=== PATIENT | male | born 1990 | race Caucasian/White ===

== ENCOUNTER 2023-07-16 13:08 | Outpatient (AMB) | payer OTHER, SELFPAY ==
--- NOTE | 2023-07-16 13:13 | MHC.PC.OV ---
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 HTN intermittent with chest pain. Was supposed to get a holter monitor but it was never scheduled. Last episode was three weeks ago. Blood pressure 3 weeks ago was 190/120. Taking magnesium, but unsure of strength. 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 Required: No Accompanied by: Spouse Allergies ENVIRONMENTAL Allergy (Unknown, Uncoded 07/16/23 13:22) RUNNY NOSE, WATERY EYES Medication List - Last Reconciled 07/16/23 by Patsy Peres MD No Known Home Meds Tobacco use date assessed: 07/16/23 Dental Screening Dental Screen Date: 07/16/23 Did you have a dental visit in the last 12 months?: No Did you have a dental problem in the last 6 months where you did not have access to dental care?: No Was dental information given to patient?: Patient has dentist HPI HPI Comments History of Present Illness Details The patient is a 32 year old male with a past medical history of hypertension, chest pain, presenting to [facility] ER visit in 2021 for chest pain-bp borderline. started on lisinopril. trop and ekg reassuring. CXR normal. took lisinopril for about 2 months. caused polyuria so stopped. Patient continues to have intermittent chest pain that comes on acutely and can last for minutes to 1-2 days. Non exertional. Hasnt noticed certain positions, activities triggers. Does notice heavy, creamy or acidic meals can trigger. Denies dysphagia. Has intermittent reflux and heartburn but not frequently recently. infrequent cough. Has intermittent elevated BP. This is usually during these episodes. Otherwise readings are normal [facility] Medical History (Updated 07/16/23 @ 14:16 by Patsy Peres MD) Acid reflux Palpitation HTN (hypertension) Intermittent chest pain Family History (Updated 07/16/23 @ 13:38 by Cherri Liz CMA) Father HTN (hypertension) Hypercholesteremia Maternal Grandmother HTN (hypertension) Hypercholesteremia Mother Diabetes Social History (Updated 07/16/23 @ 13:25 by MAGI Friedman Housing: Other (duplex) Patient Tobacco Use Status: Former Tobacco user Cigarette Packs Per Day: 1 Years Smoked: 10 e-Cigarette/Vaping Use: Never Used Second Hand Smoke Exposure: Yes (past) Substance Use Type: Marijuana service: No Current occupational status: employed Current occupation: [employer] Current occupational exposures/hazards: No Cognitive needs: No Hearing needs: No Vision needs: No Questionnaire PHQ-9 Over the last 2 weeks, how often have you been bothered by any of the following problems? 1. Little interest or pleasure in doing things: not at all 2. Feeling down, depressed, or hopeless: not at all 3. Trouble falling or staying asleep, or sleeping too much: several days 4. Feeling tired or having little energy: several days 5. Poor appetite or overeating: not at all 6. Feeling bad about yourself - or that you are a failure or have let yourself or your family down: not at all 7. Trouble concentrating on things, such as reading the newspaper or watching television: not at all 8. Moving or speaking so slowly that other people could have noticed. Or the opposite - being so fidgety or restless that you have been moving around a lot more than usual: not at all 9. Thoughts that you would be better off or of hurting yourself in some way: not at all Total score: 2 Depression Screening Interpretation: Negative (neg) Depression Screening Done: Yes 91960 - PHQ-9 Billing: Yes Source: Developed by Drs. Deng Mitchell, Alisia Goldman, Musa Noel and colleagues, with an educational olga lidia from [employer]. Thrive Questionnaire Date Thrive assessed: 07/16/23 I am a: Patient What is your living situation today?: I have a steady place to live Within the past 12 months, did the food you bought not last and you didn't have the money to get more?: Never true Within the past 12 months, did you worry whether your food would run out before you got money to buy more?: Never true Do you have trouble paying for medicines?: No Do you have trouble getting transportation to medical appointments?: No Do you have trouble paying your heating and electricity bill?: No Do you have trouble taking care of your child, family member or friend?: No Do you have trouble with day-to-day activities such as bathing, preparing meals, shopping, managing finances, etc.?: No Are you currently unemployed and looking for a job?: No Are you interested in more education?: No Please select the resources that you would like help with: None Currently or been in a relationship where the following occur: no concerns reported THRIVE Score: 0 AUDIT C Alcohol Use Questionnaire (AUDIT-C) 1. How often do you have a drink containing alcohol?: Monthly or less 2. How many drinks containing alcohol do you have on a typical day when you are drinking?: 5 or 6 3. How often do you have six or more drinks on one occasion?: Less than monthly Total Score: 4 GERA-7 AMB Questionnaire GERA-7 Date GERA - 7 assessed: 07/16/23 Feeling nervous, anxious, or on edge: 0 = Not at all Not being able to stop or control worryin = Not at all Worrying too much about different things: 0 = Not at all Trouble relaxin = Not at all Being so restless that it is hard to sit still: 0 = Not at all Becoming easily annoyed or irritable: 0 = Not at all Feeling afraid as if something awful might happen: 0 = Not at all Total GERA-7 score (0-4 normal; 5-9 mild; 10-14 moderate; 15-21 severe): 0 Source: Developed by Drs. Deng Mitchell, Alisia Goldman, Musa Noel and colleagues, with an educational olga lidia from [employer]. GERA-7 Assessment Billing GERA-7 Assessment Tool: GERA-7 Assessment 38592 Review of Systems Const Details: see HPI Physical exam (Primary Care) Vital Signs: Last Vital Signs Temp 98.3 F 07/16/23 13:26 Pulse 105 H 07/16/23 13:26 Resp 16 07/16/23 13:26 BP 118/74 07/16/23 13:26 Pulse Ox 96 07/16/23 13:26 Oxygen Delivery Method Room Air 07/16/23 13:26 PHYSICAL EXAM: GENERAL: Alert and oriented x 3. NAD EYES: EOMI. Anicteric. HENT: Moist mucous membranes. No scleral icterus. No cervical lymphadenopathy. LUNGS: Clear to auscultation bilaterally. CARDIOVASCULAR: Regular rate and rhythm. ABDOMEN: Soft, non-tender +bs EXTREMITIES: No edema. Non-tender. SKIN: No rashes or lesions. Warm. NEUROLOGIC: No focal neurological deficits PSYCHIATRIC: Cooperative. Appropriate mood and affect BMI result Body Mass Index 27.9 Depression Screening Interpretation: Negative (neg) Currently or been in a relationship where the following occur: no concerns reported Assessment and Plan Assessment & Plan (1) Intermittent chest pain: Comment: CXR, CT r/o lung pathology, hernia. GI referral for consideration of endoscopy. Discussed meals. If increased reflux, heartburn start PPI x one month Code(s): R07.9 - Chest pain, unspecified (2) HTN (hypertension): Code(s): I10 - Essential (primary) hypertension Qualifiers: Hypertension type: unspecified Qualified Code(s): I10 - Essential (primary) hypertension (3) Acid reflux: Code(s): K21.9 - Gastro-esophageal reflux disease without esophagitis Qualifiers: Esophagitis presence: esophagitis presence not specified Qualified Code(s): K21.9 - Gastro-esophageal reflux disease without esophagitis (4) Cough: Code(s): R05.9 - Cough, unspecified Qualifiers: Cough type: unspecified Qualified Code(s): R05.9 - Cough, unspecified (5) Intermittent chest pain: Comment: CXR, CT r/o lung pathology, hernia. GI referral for consideration of endoscopy. Discussed meals. If increased reflux, heartburn start PPI x one month Code(s): R07.9 - Chest pain, unspecified (6) HTN (hypertension): Code(s): I10 - Essential (primary) hypertension (7) Acid reflux: Code(s): K21.9 - Gastro-esophageal reflux disease without esophagitis Orders: Orders XR chest 2V Today I10 - Essential (primary) hypertension, K21.9 - Gastro-esophageal reflux disease without esophagitis, R07.9 - Chest pain, unspecified CT chest wo IV con Today I10 - Essential (primary) hypertension, K21.9 - Gastro-esophageal reflux disease without esophagitis, R05.9 - Cough, unspecified, R07.9 - Chest pain, unspecified SAM Reflex Titer and Pattern Today I10 - Essential (primary) hypertension, K21.9 - Gastro-esophageal reflux disease without esophagitis, R05.9 - Cough, unspecified, R07.9 - Chest pain, unspecified Lyme IgG/IgM w/reflex to WB Today I10 - Essential (primary) hypertension, K21.9 - Gastro-esophageal reflux disease without esophagitis, R05.9 - Cough, unspecified, R07.9 - Chest pain, unspecified Complete Blood Count Auto Diff Today I10 - Essential (primary) hypertension, K21.9 - Gastro-esophageal reflux disease without esophagitis, R05.9 - Cough, unspecified, R07.9 - Chest pain, unspecified Comprehensive Met. Panel Today I10 - Essential (primary) hypertension, K21.9 - Gastro-esophageal reflux disease without esophagitis, R05.9 - Cough, unspecified, R07.9 - Chest pain, unspecified Erythrocyte Sedimentation Rate Today I10 - Essential (primary) hypertension, K21.9 - Gastro-esophageal reflux disease without esophagitis, R05.9 - Cough, unspecified, R07.9 - Chest pain, unspecified AMB Urinalysis Auto Microscop. Today I10 - Essential (primary) hypertension Referrals Gastroenterology Referral I10 - Essential (primary) hypertension, K21.9 - Gastro-esophageal reflux disease without esophagitis, R07.9 - Chest pain, unspecified Coding Level of Care Code Tele New Pt Level 4 (94186) Complex EM visit Add On G2211 Diagnoses Intermittent chest pain R07.9 Hypertension, unspecified type I10 Hypertension type: unspecified Gastroesophageal reflux disease, unspecified whether esophagitis present K21.9 Esophagitis presence: esophagitis presence not specified Cough, unspecified type R05.9 Cough type: unspecified Additional Codes GERA-7 Assessment Billing - GERA-7 Assessment Tool: GERA-7 Assessment [id number] ([id number])
[2023-07-16 13:26] VITALS: BP 118/74; PULSE 105; RESP 16; TEMP 36.8; O2SAT 96; BMI 27.9
== END 2023-07-16 15:45 | disposition home or self-care (01) ==
PROVIDERS: Visit Provider Internal Medicine
DX: R07.9 Chest pain, unspecified (principal); I10 Essential (primary) hypertension; K21.9 Gastro-esophageal reflux disease without esophagitis; R05.9 Cough, unspecified
CPT/HCPCS: 99204; G2211

== ENCOUNTER 2023-07-31 14:19 | Outpatient (REF) | payer OTHER, SELFPAY ==
--- NOTE | ~2023-07-31 | XR_ITS ---
EXAMINATION: XR CHEST CLINICAL INFORMATION: Cough and chest pain COMPARISON: None available. TECHNIQUE: 2 views of the chest were obtained. FINDINGS: No significant abnormality is noted involving the heart, lungs, mediastinum, bony thorax or soft tissues. XR/XR chest 2V IMPRESSION: Unremarkable examination.
--- NOTE | ~2023-07-31 | CT_ITS ---
EXAMINATION: CT CHEST WITH CONTRAST CLINICAL INFORMATION: Cough, intermittent chest pain, history of trauma COMPARISON: Same day chest radiograph TECHNIQUE: Multidetector volumetric CT imaging of the chest was obtained after the administration of 65 mL of Omnipaque 350 intravenous contrast without immediate adverse reactions. Axial MIP volume rendering provided. Sagittal and coronal reformatted images were obtained. This CT examination was performed using dose optimization techniques as appropriate, variously including the following: *Automated exposure control *Adjustment of mA and/or kV according to patient size (this includes techniques or standardized protocols for targeted exams where dose is matched to indication/reason for exam; i.e. extremities or head) *Use of iterative reconstruction technique DLP: 162 mGy-cm FINDINGS: DEVELOPMENT ARCHITECT: Unremarkable LUNGS: Trachea and bronchi are patent. The lungs are clear with no evidence of inflammation or nodules. MEDIASTINUM: Unremarkable thyroid. Mild amorphous soft tissue infiltration in the anterior mediastinum likely related to residual thymus. Heart is not enlarged. No pericardial effusion. No coronary calcifications. Nonaneurysmal aorta with patency of the branch vessels. Nonenlarged pulmonary arteries. PLEURA: There is no pleural effusion. No pleural mass or thickening. AXILLA: No lymphadenopathy. UPPER ABDOMEN: Diffuse hypodensity to the liver parenchyma. Splenule. OSSEOUS STRUCTURES: Unremarkable. CT/CT chest w IV con IMPRESSION: No acute intrathoracic pathology. Hepatic steatosis. Fleischner guidelines were followed.
[2023-07-31] MEDS: iohexoL 350 MG/ML 75 ML INFUS..BTL 65 ML IV (15:13)
== END 2023-07-31 14:20 | disposition home or self-care (01) ==
LOC: HO.CT 14:19
PROVIDERS: PCP Internal Medicine; Visit Provider Internal Medicine
DX: R07.9 Chest pain, unspecified (principal); I10 Essential (primary) hypertension; K21.9 Gastro-esophageal reflux disease without esophagitis; R05.9 Cough, unspecified; Z87.828 Personal history of other (healed) physical injury and trauma
CPT/HCPCS: 71046; 71260; Q9967

== ENCOUNTER 2023-07-31 14:31 | Outpatient (REF) | payer OTHER, SELFPAY ==
[2023-07-31 14:47] LABS: MANUAL DIFF FLAG NO
[2023-07-31 15:12] LABS: Basophils Percent Auto 0.6 % (0-2); Eosinophils Absolute Auto 0.2 X10*3/uL (0.0-0.4); Eosinophils Percent Auto 2.2 % (0-4); Hematocrit 44.8 % (42.0-52.0); Imm Gran Abs Auto 0.01 X10*3/uL (0.00-0.03); Imm Gran Pct Auto 0.1 % (0.0-0.4); Lymphocytes Absolute Auto 1.9 X10*3/uL (1.2-4.9); Lymphocytes Percent Auto 27.6 % (20-40); Mean Corpuscular HGB Conc 35.7 g/dl (31.0-36.0); Mean Corpuscular Hemoglobin 30.8 pg (27.0-33.0); Mean Corpuscular Volume 86.2 fL (80.0-98.0); Mean Platelet Volume 9.9 fL (9.4-12.4); Monocytes Absolute Auto 0.6 X10*3/uL (0.1-1.2); Monocytes Percent Auto 8.6 % (2-11); Neutrophils Absolute Auto 4.1 x10*3/uL (2.0-8.3); Neutrophils Percent Auto 60.9 % (45-73); Platelet Count 254 X10*3/uL (160-400); White Blood Count 6.8 X10*3/uL (4.8-10.8)
[2023-07-31 16:39] LABS: Erythrocyte Sedimentation Rate 2 MM/HR (0-15)
[2023-07-31 17:47] LABS: Alanine Aminotransferase 27 U/L (0-40); Albumin Level 4.6 g/dL (3.5-5.0); Alkaline Phosphatase 45 U/L (39-117); Anion Gap 13 (12-20); Aspartate Amino Transferase 16 U/L (5-37); Bilirubin Total 0.9 mg/dL (0.0-1.0); Blood Urea Nitrogen 7 mg/dL (9-16); Calcium 9.9 mg/dL (8.4-10.2); Carbon Dioxide 23 mmol/L (22-29); Chloride 107 mmol/L (96-108); Estimated Glomerular Filt Rate > 60; Glucose Random 95 mg/dL (60-115); Potassium 3.9 mmol/L (3.3-5.1); Sodium 139 mmol/L (135-145); Total Protein 7.7 g/dL (6.5-8.0)
[2023-08-01 18:03] LABS: Lyme Abs Screen <0.90 index
[2023-08-02 16:17] LABS: Anti Nuclear Antibody Screen NEGATIVE (NEGATIVE)
== END 2023-07-31 14:32 | disposition home or self-care (01) ==
LOC: HO.LAB 14:31
PROVIDERS: PCP Internal Medicine; Visit Provider Internal Medicine
DX: R05.9 Cough, unspecified (principal); R07.9 Chest pain, unspecified; I10 Essential (primary) hypertension; K21.9 Gastro-esophageal reflux disease without esophagitis
CPT/HCPCS: 36415; 80053; 85025; 85652; 86038; 86617; 86618

== ENCOUNTER 2023-09-18 14:53 | Outpatient (AMB) | payer OTHER, SELFPAY ==
[2023-09-18 14:58] VITALS: BP 136/89; PULSE 83; BMI 27.8
--- NOTE | 2023-09-18 14:58 | A.OFFVIS_ITS ---
Vital Signs 09/18/23 14:58 Height 5 ft 11 in Weight 199 lb 4.766 oz BMI 27.8 BP 136/89 Blood Pressure Location Lt brachial Position Sitting Pulse 83 Intake Visit Reasons: Gastroesophageal reflux disease (GERD) Intake Note: José Miguel presents as a new patient for evaluation and management of GERD. CC: Patient states I get this weird chest pain , onset about a year ago. He reports sharp pain, random, and always on the same spot, upper left chest. Pain lasts usually for about an hour per PT. Patient also states that when he gets the chest pain his BP spikes up to around 190/109. Safety Assistant Required: No Accompanied by: Self / Same As Patient Allergies No Known Drug Allergies Allergy (Unknown, Verified 09/18/23 15:08) none ENVIRONMENTAL Allergy (Unknown, Uncoded 07/16/23 13:22) RUNNY NOSE, WATERY EYES HPI HPI Gastroesophageal reflux disease (GERD): Details: 33-year-old male with no significant past medical history is here today for initial consultation. Patient was sent to us by PCP. Patient has been experiencing upper chest discomfort that feels stabbing like pain. No pressure, no shortness of breath with activity. Patient is there usually when he is resting. Patient states that when he has this chest pain he admits to be anxious his blood pressure is up when he checks it. Patient denies any nausea or vomiting. Patient reports abdominal bloating and feeling gassy. However patient is not able to remember if when he is experiencing this pain he is belching or if he is having any acid reflux or that time. Patient reports that he is moving his bowels without any issues. Denies melena, hematochezia, unintentional weight loss or ribbon like stools. [facility] Medical History Acid reflux Palpitation HTN (hypertension) Intermittent chest pain Surgical History S/P ACL repair Family History Father HTN (hypertension) Hypercholesteremia Maternal Grandmother HTN (hypertension) Hypercholesteremia Mother Diabetes Social History Housing: Other Alcohol intake: current Patient Tobacco Use Status: Former Tobacco user Cigarette Packs Per Day: 1 Years Smoked: 10 e-Cigarette/Vaping Use: Never Used Second Hand Smoke Exposure: Yes (past) Substance Use Type: Marijuana service: No Current occupational status: employed Current occupation: [employer] Current occupational exposures/hazards: No Cognitive needs: No Hearing needs: No Vision needs: No Review of Systems Const Denies weight gain and Denies weight loss ENT Reports no additional complaints, Denies dysphagia and Denies odynophagia Card Reports no additional complaints and Reports chest pain at rest Resp Reports no additional complaints GI Denies abdominal pain, Denies belching, Denies melena, Denies bloating, Denies change in bowel habits, Denies dysphagia, Denies excessive flatus, Denies dyspepsia, Denies heartburn, Denies diarrhea, Denies loose stools, Denies nausea, Denies odynophagia and Denies vomiting Reports no additional complaints Musc Reports no additional complaints Neuro Reports no additional complaints Psych Reports no additional complaints Endo Reports no additional complaints Physical Exam Vital Signs: Last Vital Signs Pulse 83 09/18/23 14:58 BP 136/89 09/18/23 14:58 BMI result Body Mass Index 27.8 Const General: healthy appearing, no acute distress and well developed Nutritional Appearance: well nourished Orientation/consciousness: patient oriented x3 Resp Effort & Inspection: normal respiratory effort, able to speak in complete sentences, no tracheal deviation and symmetric chest movement Auscultation: clear to auscultation bilaterally Cardio Rate: regular rate GI Inspection: Yes normal to inspection and No distended Palpation (GI): Soft to palpation, not firm, nontender and No hepatosplenomegaly present Auscultation: normal bowel sounds General: Yes no CVA tenderness Back/Spine/Pelvis Back: no CVA tenderness Skin General skin exam: elasticity normal, turgor normal and dry skin Neuro General: patient oriented x3 Psych Appearance: grossly normal Mental Status: mental status grossly normal Assessment & Plan Assessment & Plan (1) Acid reflux: Code(s): K21.9 - Gastro-esophageal reflux disease without esophagitis Category: Medical Qualifiers: Esophagitis presence: esophagitis presence not specified Qualified Code(s): K21.9 - Gastro-esophageal reflux disease without esophagitis (2) Intermittent chest pain: Code(s): R07.9 - Chest pain, unspecified Category: Medical Plan Patient has negative exam except for hyperactive bowel sound in right and left upper quadrants. Mild distention without any tenderness. Will send patient for upper GI study to see if he is experiencing reflux or this is a hiatal hernia. Negative exam for now. Patient will follow-up in the office in 3 months, sooner on as needed basis. Avoid dietary triggers and late night snacking. Staying upright for minimum 3 hours after meals discussed with patient. Avoid food that is very gassy. Low FODMAP diet discussed with patient. List of food recommended as well as list of food to avoid given to patient. He is agreeable to this plan and verbalizes understanding of instructions. He was given the opportunity to ask questions and all questions answered. Thank you for allowing me to participate in his care Orders: Orders [place] upper GI series 09/18/23 K21.9 - Gastro-esophageal reflux disease without esophagitis Coding Level of Care Code New Pt Level 3 (87872) Diagnoses Gastroesophageal reflux disease, unspecified whether esophagitis present K21.9 Esophagitis presence: esophagitis presence not specified Intermittent chest pain R07.9 Time Spent (min) 40 Comment 30 minutes spent with patient and additional 10 minutes spent reviewing his records
== END 2023-09-18 15:40 | disposition home or self-care (01) ==
PROVIDERS: PCP Internal Medicine; Visit Provider Nurse Practitioner Family
DX: K21.9 Gastro-esophageal reflux disease without esophagitis (principal); R07.9 Chest pain, unspecified
CPT/HCPCS: 99203

== ENCOUNTER → 2023-09-18 14:53 | Outpatient (BNVA) | payer OTHER, SELFPAY | PROVIDERS: PCP Internal Medicine; Visit Provider Nurse Practitioner Family ==

== ENCOUNTER 2023-10-31 12:54 | Outpatient (AMB) | payer OTHER, SELFPAY ==
[2023-10-31 12:59] VITALS: BP 130/82; PULSE 78; BMI 27.4
--- NOTE | 2023-10-31 12:59 | A.OFFVIS_ITS ---
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 He is 33-year-old male who has been having this intermittent episodes of chest discomfort for many months. Patient said this chest discomfort described as sharp pressure in the left parasternal area that happens randomly. Symptoms last for 15-30 minutes. Recently saw GI provider and was told that try to burp. This said improve his symptoms. His symptoms are not clearly exertional in nature. However he is perplexed about the symptoms. His symptoms have not recurred for the last 2 weeks. Comes for follow-up today. Says mom has a history of possible cardiomyopathy is not clear. He denies any significant symptoms of shortness of breath, orthopnea, PND. He does not exercise on a regular basis but stays pretty active. He has history of hypertension past was on lisinopril but he said he has stopped taking it because it increases urination levels. His blood pressure is generally in the 130 range. Denies any prolonged palpitation irregular heartbeat. No lightheadedness, syncope. No orthopnea, PND, leg edema. [facility] Medical History Acid reflux Palpitation HTN (hypertension) Intermittent chest pain Surgical History S/P ACL repair Family History Father HTN (hypertension) Hypercholesteremia Maternal Grandmother HTN (hypertension) Hypercholesteremia Mother Diabetes Social History Housing: Other Alcohol intake: current Patient Tobacco Use Status: Former Tobacco user Cigarette Packs Per Day: 1 Years Smoked: 10 e-Cigarette/Vaping Use: Never Used Second Hand Smoke Exposure: Yes (past) Substance Use Type: Marijuana service: No Current occupational status: employed Current occupation: [employer] Current occupational exposures/hazards: No Cognitive needs: No Hearing needs: No Vision needs: No Review of Systems Const Denies chills, Denies fatigue, Denies fever(s), Denies frequent falls, Denies weakness, Denies weight gain and Denies weight loss ENT Denies dizziness Card Denies chest pain, Denies leg edema, Denies lightheadedness, Denies palpitations, Denies dyspnea, Denies dyspnea on exertion and Denies orthopnea Resp Denies cough, Denies dyspnea and Denies dyspnea on exertion GI Denies bloating and Denies change in bowel habits Musc Denies muscle weakness, Denies numbness and Denies tingling Neuro Denies dizziness, Denies frequent falls, Denies numbness, Denies tingling and Denies weakness Endo Denies fatigue and Denies palpitations Physical Exam Vital Signs: Last Vital Signs Pulse 78 10/31/23 12:59 BP 130/82 10/31/23 12:59 BMI result Body Mass Index 27.4 Const General: cooperative, comfortable, no acute distress, well developed, alert, awake and Physically active Nutritional Appearance: average body habitus and well nourished Orientation/consciousness: patient oriented x3 Limitations: no limitations HEENT Head: Yes normocephalic and Yes atraumatic Neck Neck: Yes trachea midline, Yes supple and Yes no JVD Resp Effort & Inspection: normal respiratory effort Auscultation: clear to auscultation bilaterally Cardio Jugular venous distension: no JVD Palpation: normal PMI Rate: regular rate Rhythm: regular rhythm Heart sounds: S1 normal heart sound present, S2 normal heart sound present, no click, no gallops, no murmurs and no rubs GI Auscultation: normal bowel sounds Skin General skin exam: no rashes or lesions noted Neuro General: patient oriented x3 and no focal motor deficits Extrem General: Yes no clubbing, cyanosis or edema Psych Appearance: grossly normal Office Procedures EKG Details: EKG shows normal sinus rhythm with sinus arrhythmia with rightward axis. [id number], Complete Assessment & Plan Assessment & Plan (1) Intermittent chest pain: Code(s): R07.9 - Chest pain, unspecified Category: Medical Plan: Intermittent episodes of left-sided chest discomfort which are atypical features. Low likelihood of myocardial ischemia although this needs to be ruled out. Will suggest a exercise treadmill stress test to evaluate for the same. Also given his rightward axis on EKG and family history of cardiomyopathy will suggest an echocardiogram to evaluate LV structure and function and evaluate for pulmonary hypertension as well as left ventricular hypertrophy. His blood pressure is borderline at this time and have strongly recommended him to continue monitor blood pressure regularly at home and if persistently elevated should be treated. Importance of this was discussed with him. Low-salt diet was discussed. Advised to participate in regular physical activity. Will follow up in the clinic if need be. Thank you for allowing me to partake in his care Orders: Orders CA stress test Today R07.9 - Chest pain, unspecified CA echo transthoracic complete Today R07.9 - Chest pain, unspecified Coding Level of Care Code New Pt Level 4 (31685) Diagnoses Intermittent chest pain R07.9 CPT Codes EKG - CPT: 38459-[id number], Complete ([id number])
== END 2023-10-31 13:15 | disposition home or self-care (01) ==
PROVIDERS: PCP Internal Medicine; Visit Provider Internal Medicine Cardiovascular Disease
DX: R07.9 Chest pain, unspecified (principal)
CPT/HCPCS: 93010; 99204

== ENCOUNTER → 2023-10-31 12:54 | Outpatient (BNVA) | payer OTHER, SELFPAY | PROVIDERS: PCP Internal Medicine; Visit Provider Internal Medicine Cardiovascular Disease | DX: R07.89 Other chest pain (principal) | CPT/HCPCS: 93005 ==

== ENCOUNTER 2023-11-26 10:04 | Outpatient (REF) | payer OTHER, SELFPAY ==
--- NOTE | ~2023-11-26 | FL_ITS ---
EXAMINATION: XR FLUOROSCOPY UPPER GI WITH AIR CLINICAL INFORMATION: Chest discomfort/reflux COMPARISON: None TECHNIQUE: Fluoroscopic air contrast upper GI examination was performed utilizing standard techniques with thin and thick barium and effervescent granules. Numerous spot images were obtained. FINDINGS: Dual and single contrast images of the esophagus demonstrate normal caliber, contour, and mucosal pattern. No evidence of stricture, mass, or ulcerations identified. Esophageal peristalsis was normal. A small type I hiatal hernia is present. Significant gastroesophageal reflux is seen up to the thoracic inlet. Dual contrast and single contrast images of the stomach demonstrated a normal contour. Normal mucosal and fold pattern. No masses or ulcerations are seen. Contrast freely passed into the gastric antrum and duodenal bulb without delay. Single and air-contrast images of the duodenal bulb demonstrate no abnormality. The duodenal sweep has a normal appearance, course, and mucosal fold appearance. The imaged proximal jejunum has a normal fold pattern and caliber. FLUOROSCOPY TIME: 3 minutes 13 seconds Number of Spot Images: 8 Number of Cine: 14 DOSE AREA PRODUCT: 2350 uGy-m2 (microgray-meter squared) FL/FL upper GI series IMPRESSION: 1. Small type I hiatal hernia. 2. Significant gastroesophageal reflux. 3. Remainder of the exam appears normal. This procedure was performed by Michael Cisneros PA-C, and supervised by Dr. Membreno Electronically signed by: Avery Membreno MD 11/27/2023 01:31 PM EDT
== END 2023-11-26 10:05 | disposition home or self-care (01) ==
LOC: HO.XRAY 10:04
PROVIDERS: PCP Internal Medicine; Visit Provider Nurse Practitioner Family
DX: K21.9 Gastro-esophageal reflux disease without esophagitis (principal)
CPT/HCPCS: 74240

== ENCOUNTER → 2023-11-26 10:06 | Outpatient (BNV) | payer OTHER, SELFPAY | PROVIDERS: PCP Internal Medicine; Visit Provider Radiology Diagnostic Radiology | DX: K21.00 Gastro-esophageal reflux disease with esophagitis, without bleeding (principal) | CPT/HCPCS: 74246 ==

== ENCOUNTER → 2023-12-09 08:00 | Outpatient (REF) | payer OTHER, SELFPAY ==
--- NOTE | 2023-12-09 08:04 | CA_ITS ---
Acquisition Time: 2023-12-09 08:58:39 Total Exercise Time: 00:10:00 Test Indications: CHEST PAIN Medications: Protocol: ENRIKE Max HR: 166 BPM 89% of Pred: 185 BPM Max BP: 168/090 mmHG Max Work Load: 11.7 METS Exercise stress test exercise 10 min of Enrike protocol achieving 89% MPHR, without anginal symptoms, without arrhythmias, with normotensive response to exercise, without EKG changes. Test reviewed with Dr. Romero. Referred By: Leo Blake Overread By: Jesusita Membreno
--- NOTE | 2023-12-09 08:04 | CA_ITS ---
Transthoracic Echocardiogram Patient (Last, First, Middle): José Miguel Encinas, Gender: Male Date of : 1990 Age: 33 Procedure Date: 12/09/2023 Procedure Type: Transthoracic Echocardiogram Location: OP Height: 180. cm Weight: 88.91 kg BSA: 2.09 m2 Heart Rate: 75 bpm BP: 128 / 85 mmHg Med Aide: MARCE Referring MD: Leo Blake MD Symptoms: R07.9 - Chest pain, unspecified Study Quality: Adequate ECG Rhythm: Sinus Conclusions: - The left ventricular systolic function is normal. The calculated ejection fraction is 61% by biplane method. - LV peak GLS -14.8%. - No obvious valvular pathology seen on this study. Findings Left Ventricle Normal left ventricular cavity size. There is normal left ventricular wall thickness. The left ventricular systolic function is normal. The calculated ejection fraction is 61% by biplane method. There is no evidence of regional wall motion abnormalities. Diastolic function is normal for age. LV peak GLS -14.8%. Right Ventricle Normal right ventricular cavity size and systolic function. Atria Both atria are normal in size. Aortic Valve There is a normal trileaflet aortic valve. There is no aortic valve stenosis. There is no aortic valve regurgitation. Mitral Valve The mitral valve appears normal. There is trace mitral valve regurgitation. There is no mitral valve stenosis. Pulmonic Valve The pulmonic valve is likely normal. Tricuspid Valve Normal tricuspid valve structure. There is trace tricuspid valve regurgitation. There is no evidence of pulmonary hypertension. Great Vessels The asc aorta is normal in size. Venous The inferior vena cava is mildly dilated and collapses greater than 50% with inspiration. Pericardium/Pleural There is no evidence of pericardial effusion. Prior Study Comparison No prior study available for comparison. Recommendations, Care & Conclusions No obvious valvular pathology seen on this study. Measurements 2D Linear Measurements IVSd: 0.92 0.6-0.9/0.6-1.0 cm LVIDd: 4.64 3.9-5.3/4.2-5.9 cm LVIDd Index: 2.22 2.4-3.2/2.2-3.1 cm/m2 LVIDs: 2.58 2.0-3.6 cm LVPWd: 0.88 0.7-1.1 cm LA Diam: 3.20 2.7-3.8/3.0-4.0 cm LAIDs Index: 1.53 1.5-2.3 cm/m2 LV Mass: 173.23 67-162/88-224 g LV Mass Index: 82.89 43-95/49-115 g/m2 LVOT Diam: 2.00 3.0+(-)1.3 cm 2D Systolic Function EF 4C: 55.20 >55% EF 2C: 66.60 >55% EF BiP: 61.20 >55% Mitral Valve MV Pk E: 0.74 MV PK A: 0.33 MV Decel Time: 180.00 E/A: 2.30 E'Lateral: 13.20 E'Medial: 10.30 E/E' Med: 7.20 E/E' Lat: 5.60 PHT: 53.00 MVA PHT: 4.15 Decel Lamoure: 4.11 Aortic Valve AoV Pk Marshall: 1.04 AoV Mn Marshall: 0.79 AoV VTI: 0.22 AoV Pk Grad: 4.00 Aov Mn Grad: 3.00 ZAC Cont.VTI: 2.55 LVOT LVOT Pk Marshall: 0.91 LVOT Mn Marshall: 0.67 LVOT VTI: 0.18 LVOT Pk Grad: 3.00 LVOT Mn Grad: 2.00 LVOT Diam: 2.00 LVOT Area: 3.14 Diastolic Function MV Pk E: 0.74 MV Pk A: 0.33 E/A: 2.30 E'Medial: 10.30 E/E' Med: 7.20 E' Laterial: 13.20 E/E' Lat: 5.60 Right Ventricle TAPSE (mm): 22.20 TVS' Marshall: 11.70 Tricuspid Valve TR Pk Marshall: 1.73 TR Pk Grad: 12.00 RA Press: 15.00 RVSP: 27.00 Great Vessels Aorta Sinus of Valsalva: 2.90 2.0-3.5 cm Ao Asc: 3.00 2.1-3.4 cm Pulmonary Valve PV Pk Marshall: 0.91 Peak PV Grad: 3.00 Updated in Other Vendor System with Status of Final Jose G Martel MD electronically signed on 12/09/2023 12:31:17 PM with status of Final
== END ==
LOC: HO.CARD 08:00
PROVIDERS: PCP Internal Medicine; Visit Provider Internal Medicine Cardiovascular Disease
DX: R07.9 Chest pain, unspecified (principal)
CPT/HCPCS: 93017; 93306; 93356

== ENCOUNTER → 2023-12-09 08:04 | Outpatient (BNV) | payer OTHER, SELFPAY | PROVIDERS: PCP Internal Medicine; Visit Provider Internal Medicine | DX: R07.9 Chest pain, unspecified (principal) | CPT/HCPCS: 93016; 93018; 93350; 93356 ==

== ENCOUNTER 2023-12-12 14:56 | Outpatient (REF) | payer OTHER, SELFPAY | END 2023-12-12 14:57 | disposition home or self-care (01) | LOC: HO.HOSX 14:56 | PROVIDERS: PCP Internal Medicine; Visit Provider Orthopaedic Surgery | DX: M25.511 Pain in right shoulder (principal) | CPT/HCPCS: 73030 ==

== ENCOUNTER 2023-12-12 14:56 | Outpatient (AMB) | payer OTHER, SELFPAY ==
--- NOTE | 2023-12-12 14:59 | MHC.OFFVIS ---
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 The patient states that his symptoms have gotten worse over the last year in spite of continued non operative treatments. He did go to an urgent care center approximately 1 year ago. He has been taking anti-inflammatory medicines, gabapentin and a muscle relaxant as well as Tylenol which gave him minimal relief. The patient states that at times his right small finger and ring finger will go ?numb?. The patient has increased pain with neck extension. He also reports intermittent pain along the lateral and posterior aspects of his right shoulder. He reports intermittent weakness in his right arm as well. He has failed the last 6 weeks of conservative treatment. Allergies No Known Drug Allergies Allergy (Unknown, Verified 12/12/23 15:09) none ENVIRONMENTAL Allergy (Unknown, Uncoded 12/12/23 15:09) RUNNY NOSE, WATERY EYES Medication List - Last Reconciled 12/12/23 by Toño Beltran MD cyclobenzaprine 10 mg (2 x 5 mg) PO BEDTIME PRN gabapentin 300 mg PO BID omeprazole 20 mg PO DAILY PFSH Medical History Acid reflux Palpitation HTN (hypertension) Intermittent chest pain Surgical History S/P ACL repair Family History Father HTN (hypertension) Hypercholesteremia Maternal Grandmother HTN (hypertension) Hypercholesteremia Mother Diabetes Social History Housing: Other Alcohol intake: current Patient Tobacco Use Status: Former Tobacco user Cigarette Packs Per Day: 1 Years Smoked: 10 e-Cigarette/Vaping Use: Never Used Second Hand Smoke Exposure: Yes (past) Substance Use Type: Marijuana service: No Current occupational status: employed Current occupation: [employer] Current occupational exposures/hazards: No Cognitive needs: No Hearing needs: No Vision needs: No Physical Exam Const Other: Well-nourished well-developed very friendly male awake alert and oriented x3 in no acute distress Neck Other: Cervical spine examination shows right-sided paraspinal muscle tenderness, pain with range of motion, positive Spurling's test, 4/5 strength with testing of his right biceps and wrist extensors when compared to 5/5 strength on his left side Extrem Other: Right shoulder examination shows full range motion when compared to his left shoulder, 4+ out of 5 strength with supraspinatus testing, positive impingement signs, no instability Results Reviewed Results Reviewed: X-rays of the patient's right shoulder show moderate to severe acromioclavicular joint narrowing, a type 2 acromion, no acute bony abnormalities Assessment & Plan Assessment & Plan (1) Neck pain on right side: Code(s): M54.2 - Cervicalgia Category: Medical (2) Right shoulder pain: Code(s): M25.511 - Pain in right shoulder Category: Medical Plan Mr. Encinas presents with progressively worsening neck pain which radiates into his right arm as well as associated right arm weakness and paresthesias most likely due to cervical stenosis or a disc herniation. Thus, I will send the patient for an MRI of his cervical spine for further evaluation. I will contact him by phone once the MRI results are available. He will call me prior to that time should his symptoms worsen in any way. I did give him a prescription for a Medrol Dosepak to help with his symptoms in the meantime. The patient also has right shoulder discomfort due to impingement syndrome. We will hold off on a cortisone injection at this time. Feel free to call me at any time should questions regarding his orthopedic management arise. I spent 22 minutes in reviewing the patient's records and imaging studies, seeing the patient and documenting in the medical record. Orders: Orders XR shoulder RT min 2V Today M25.511 - Pain in right shoulder MR cervical spine wo con Today M54.2 - Cervicalgia Medications: New methylprednisolone (Medrol (Abner)) PO PER PKG DIR 21 ea 0RF Coding Level of Care Code New Pt Level 3 (48035) Complex EM visit Add On G2211 Diagnoses Neck pain on right side M54.2 Right shoulder pain M25.511
== END 2023-12-12 15:43 | disposition home or self-care (01) ==
PROVIDERS: PCP Internal Medicine; Visit Provider Orthopaedic Surgery
DX: M54.2 Cervicalgia (principal); M25.511 Pain in right shoulder
CPT/HCPCS: 99203

== ENCOUNTER 2024-01-23 11:32 | Outpatient (REF) | payer OTHER, SELFPAY | END 2024-01-23 11:33 | disposition home or self-care (01) | LOC: HO.HOSX 11:32 | PROVIDERS: Visit Provider Orthopaedic Surgery | DX: Z13.89 Encounter for screening for other disorder (principal) ==

== ENCOUNTER 2024-02-12 10:00 | Outpatient (RCR) | payer OTHER, SELFPAY ==
--- NOTE | 2024-01-15 10:52 | MHC.PT.EP ---
[facility] [place] [facility] [place] [facility] [place] Office [address] Lorin Chaney [address] [phone] F: [phone] F: [phone] F: [phone] F: [phone] Physical Therapy Plan of Care Date of Evaluation: 01/15/24 Date of Surgery: n/a Diagnosis: cervicalgia Assessment: Patient is a 33 year old male presenting to PT with complaints of pain in his neck. Pt reports onset of pain began about 2.5 months ago due to insidious onset. He presents today with impairments in pain, cervical ROM, radicular signs, posture. 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 Clinical presentation today is most consistent with signs and sx associated with neck pain and pt will benefit from skilled PT 2 week x 4 weeks to address the following problems and impairments noted upon evaluation: pain, cervical ROM, radicular signs, posture. These problems limit the patient with the following functional activities: ADLs, sleep, work. The prescribed treatment plan of care is medically necessary. Co-morbidities of none were identified and taken into considerations of plan of care. Pt was educated on HEP, role of PT, prognosis, POC. Frequency and Duration: The patient will be seen 2 x week x 4 weeks Short Term Goals: Pt will demonstrate centralization of sx in 2 weeks for improved QOL. Pt will demonstrate cervical ROM in available range with min to no pain/ sx in 2 weeks. Manager Utilities Goals: Pt will demonstrate improved NDI score by 10% in 4 weeks for improved functional mobility. Pt will demonstrate ability to sleep through the night with min to no pain in 4 weeks for return to PLOF. Pt will demonstrate ability to complete ADLs with min to no pain/sx onset in 4 weeks for return to PLOF. Treatment Plan: Modalities to reduce pain, spasms and effusion. Manual therapy to restore motion and function. Therapeutic exercise to improve strength and flexibility. Neuromuscular re-education for posture and balance. Therapeutic activities to return to functional activities of daily living. Electronically signed by: Pricilla Ross, PT, DPT, ATC Please sign and return to therapist. Thank you for your referral.
--- NOTE | 2024-07-22 07:37 | MHC.PT.DC ---
[facility] [place] [facility] [place] [facility] [place] [facility] [address] Lorin Chaney [address] [phone] F: [phone] F: [phone] F: [phone] F: [phone] Physical Therapy Discharge Report Diagnosis: cervicalgia Date of Surgery: n/a Date of Evaluation: 01/15/24 Date of Discharge: 07/22/24 Treatments to Date: 3 Cancellations to Date: No Shows to Date: Discharge Status: Discharge Summary: Pt did not schedule more appointments at his last visit. Pt d/c as this was >30 days ago. Electronically signed by: Pricilla Ross, PT, DPT, ATC Please sign and return to therapist. Thank you for your referral.
== END 2024-07-22 07:38 | disposition home or self-care (01) ==
LOC: HO.PTCHIC 10:00
PROVIDERS: PCP Internal Medicine; Visit Provider Orthopaedic Surgery
DX: M54.2 Cervicalgia (principal)
CPT/HCPCS: 97110; 97161

== ENCOUNTER 2024-02-13 09:25 | Outpatient (REF) | payer OTHER, SELFPAY ==
--- NOTE | ~2024-02-13 | XR_ITS ---
EXAMINATION: XR CERVICAL SPINE CLINICAL INFORMATION: Cervicalgia M54.2. COMPARISON: None available TECHNIQUE: 3 views of the cervical spine were obtained. FINDINGS: Normal bone mineralization. No fractures, compression deformity, or focal bone lesions. There is a trace levoconvex scoliosis. There is a mild reversal of the normal lordosis centered at C3-4. This is nonspecific. There is normal facet alignment in an otherwise normal sagittal alignment without subluxations. There is minimal degenerative disc change C5-6. Remainder of the intervertebral discs appear normal. There is mild facet degeneration present on the right C5-6. Facets are otherwise normal in appearance. Atlantoaxial joint and craniocervical junction are intact and aligned. No prevertebral or paravertebral soft tissue abnormalities. Lung apices clear. XR/XR cervical spine 3V IMPRESSION: 1. No acute cervical spine abnormalities. 2. Minimal levoconvex scoliosis, and minimal reversal of the normal lordosis, both nonspecific. 3. Mild disc and right facet degeneration C5-6. Electronically signed by: Avery Membreno MD 02/28/2024 11:07 AM [facility]
== END 2024-02-13 09:26 | disposition home or self-care (01) ==
LOC: HO.HOSX 09:25
PROVIDERS: Visit Provider Orthopaedic Surgery
DX: M54.2 Cervicalgia (principal)
CPT/HCPCS: 72040

== ENCOUNTER 2024-02-13 13:13 | Outpatient (AMB) | payer OTHER, SELFPAY ==
--- NOTE | 2024-02-13 13:15 | A.OFFVIS_ITS ---
Vital Signs 02/13/24 13:26 Height 5 ft 11 in Weight 201 lb BMI 28.0 Handedness Right Intake Visit Reasons: Neck pain radiating down right arm, Right shoulder pain Intake Note: José Miguel is a 33 year old male who presents with complaints of progressively worsening neck pain which radiates into his right arm. The patient states that his symptoms have gotten worse over the last year in spite of continued non operative treatments. He did go to an urgent care center approximately 1 year ago. He has been taking anti-inflammatory medicines, gabapentin and a muscle relaxant as well as Tylenol which gave him minimal relief. The patient states that at times his right small finger and ring finger will go ?numb?. The patient has increased pain with neck extension. He also reports intermittent pain along the lateral and posterior aspects of his right shoulder. He reports intermittent weakness in his right arm as well. I first evaluated patient for the symptoms on 12/12/2023, more than 8 weeks ago. The patient has failed the last 8 weeks of conservative treatment including physical therapy exercises, Tylenol, anti-inflammatory medicines and gabapentin. The patient was given a prescription for a Medrol Dosepak which gave him minimal relief. I did order an MRI of his cervical spine after his last visit. That MRI was denied by his insurance company because the insurance company felt that the patient had not failed the prior 6 weeks of conservative treatments. Allergies No Known Drug Allergies Allergy (Unknown, Verified 02/13/24 13:26) none ENVIRONMENTAL Allergy (Unknown, Uncoded 02/13/24 13:26) RUNNY NOSE, WATERY EYES Medication List - Last Reconciled 02/13/24 by Toño Beltran MD cyclobenzaprine 10 mg (2 x 5 mg) PO BEDTIME PRN gabapentin 300 mg PO BID methylprednisolone (Medrol (Abner)) PO PER PKG DIR omeprazole 20 mg PO DAILY PFSH Medical History Acid reflux Palpitation HTN (hypertension) Intermittent chest pain Surgical History S/P ACL repair Family History Father HTN (hypertension) Hypercholesteremia Maternal Grandmother HTN (hypertension) Hypercholesteremia Mother Diabetes Social History Alcohol intake: current Patient Tobacco Use Status: Former Tobacco user Cigarette Packs Per Day: 1 Years Smoked: 10 e-Cigarette/Vaping Use: Never Used Second Hand Smoke Exposure: Yes (past) Substance Use Type: Marijuana service: No Current occupational status: employed Current occupation: [employer] Current occupational exposures/hazards: No Cognitive needs: No Hearing needs: No Vision needs: No Physical Exam Vital Signs: BMI result Body Mass Index 28.0 Const Other: Well-nourished well-developed very friendly male awake alert and oriented x3 in no acute distress Neck Other: Cervical spine examination shows pain with range of motion, tenderness along his right-sided paraspinal muscles, no overlying skin lesions, positive Spurling's test, 4/5 strength with testing of his right biceps and wrist extensors when compared to 5/5 strength on his left side Extrem Other: Right shoulder examination shows full range of motion when compared to his left shoulder, positive impingement signs, no instability Results Reviewed Results Reviewed: X-rays of the patient's right shoulder taken today show moderate acromioclavicular joint narrowing, a type 2 acromion, no acute bony abnormalities X-rays of the patient's cervical spine taken today show loss of normal cervical lordosis, mild to moderate diffuse degenerative disc disease, no acute bony abnormalities Assessment & Plan Assessment & Plan (1) Neck pain on right side: Code(s): M54.2 - Cervicalgia Category: Medical (2) Right shoulder pain: Code(s): M25.511 - Pain in right shoulder Category: Medical Plan Mr. Encinas presents with progressively worsening neck pain which radiates into his right arm as well as associated right arm weakness most likely due to cervical stenosis or a disc herniation. I will once again order a cervical spine MRI. The previous order was denied by the patient's insurance company. The patient's symptoms have gotten worse since I last saw him, 8 weeks ago. He has failed the last 8 weeks of conservative treatment. I do feel that the MRI is a medical necessity because of his right upper extremity weakness and progressively worsening symptoms. I will contact the patient by phone once the MRI results are available. He will call me prior to that time should his symptoms worsen in any way. Feel free to call me at any time should questions regarding his orthopedic management arise. I spent 22 minutes in reviewing the patient's records and imaging studies, seeing the patient and documenting in the medical record. Orders: Orders MR cervical spine wo con Today M54.2 - Cervicalgia Coding Level of Care Code Est Pt Level 3 (64422) Complex EM visit Add On G2211 Diagnoses Neck pain on right side M54.2 Right shoulder pain M25.511
[2024-02-13 13:26] VITALS: BMI 28.0
== END 2024-02-13 13:43 | disposition home or self-care (01) ==
PROVIDERS: PCP Internal Medicine; Visit Provider Orthopaedic Surgery
DX: M54.2 Cervicalgia (principal); M25.511 Pain in right shoulder
CPT/HCPCS: 99213

== ENCOUNTER → 2024-02-13 13:17 | Outpatient (BNV) | payer OTHER, SELFPAY | PROVIDERS: Visit Provider Radiology Diagnostic Radiology | DX: M54.2 Cervicalgia (principal) | CPT/HCPCS: 72040 ==

== ENCOUNTER 2024-03-12 19:08 | Outpatient (REF) | payer OTHER, SELFPAY ==
--- NOTE | ~2024-03-12 | MR_ITS ---
EXAMINATION: MR CERVICAL SPINE WITHOUT CONTRAST CLINICAL INFORMATION: Cervicalgia COMPARISON: Cervical spine 02/13/2024 TECHNIQUE: MRI of the cervical spine was obtained using routine sequences without contrast. FINDINGS: There is mild straightening of cervical lordosis. The vertebral heights and alignment is normal. There is mild loss of C5-6 disc height with mild disc desiccation change. The rest the disc heights are maintained normal. The CT-3's unremarkable. At C3-4 disc levels is minimal bulge slightly more centrally with effacement of ventral thecal sac and mildly to canal stenosis. The neural foramina are patent bilaterally. At C4-5 disc levels is mild diffuse bulge slightly eccentric to the right with effacement of ventral thecal sac and [id number] canal stenosis. Mild narrowing of right neural foramina from uncovertebral hypertrophic changes seen. At C5-6 disc level there is a right paracentral disc herniation impinging on the right ventral cord and resulting in moderate canal stenosis. There is moderate right neural foraminal narrowing from uncovertebral hypertrophic change mild narrowing of left neural foramina is noted. At C6-7 disc level there is broad-based moderate bulge resulting in moderate canal stenosis. There is moderate right and mild left neural foramina narrowing from uncovertebral hypertrophic change. At C7-T1 disc level there is no significant disc bulge, herniation or spinal canal stenosis. The neural foramina patent bilaterally. The cord signal and the cervical-medullary junction is normal. The bone marrow signal is normal. The paravertebral soft tissues are normal. MR/MR cervical spine wo con IMPRESSION: Moderate size right paracentral disc herniation at C5-6 disc level resulting in moderate spinal canal stenosis and moderate right neural from narrowing. Mild bulge centralized at C3-4, slightly eccentric to the right at C4-5 and moderate bulge at C6-7 disc level with spinal canal stenosis as described above. There is no abnormal signal seen in the cord Electronically signed by: Porfirio Warren MD 03/16/2024 07:45 AM [facility]
== END 2024-03-12 19:09 | disposition home or self-care (01) ==
LOC: HO.MRI 19:08
PROVIDERS: Visit Provider Orthopaedic Surgery
DX: M54.2 Cervicalgia (principal)
CPT/HCPCS: 72141

== ENCOUNTER → 2024-03-12 19:17 | Outpatient (BNV) | payer OTHER, SELFPAY | PROVIDERS: Visit Provider Radiology Diagnostic Radiology | DX: M54.2 Cervicalgia (principal) | CPT/HCPCS: 72141 ==

== ENCOUNTER 2024-03-26 13:14 | Outpatient (AMB) | payer OTHER, SELFPAY ==
--- NOTE | 2024-03-26 13:17 | A.SPINEOV_ITS ---
Vital Signs 03/26/24 13:23 Height 5 ft 11 in Weight 203 lb BMI 28.3 Intake Visit Reasons: cervical stenosis Intake Note: Mr. Encinas is here today c/o of right shoulder pain causing numbness and tingling of fingers. Supervisor Pleating Required: No Allergies No Known Drug Allergies Allergy (Unknown, Verified 03/26/24 13:24) none ENVIRONMENTAL Allergy (Unknown, Uncoded 02/13/24 13:26) RUNNY NOSE, WATERY EYES Physical Exam Vital Signs: BMI result Body Mass Index 28.3 Assessment & Plan Assessment & Plan (1) Cervical myelopathy: Code(s): G95.9 - Disease of spinal cord, unspecified Category: Medical Plan Dear DR Beltran, Thank you for referring Mr Encinas to our office today. He is a very nice 33-year-old gentleman presents to the office today for pain going down his right arm with feelings of weakness of his hand and numbness of his whole arm. It started sometime in December. There was no inciting event. The pain was very severe when it 1st started and it has receded a little bit with the help of some physical therapy and tincture of time. However, he is still dealing with about a 4 to 5/10 pain scale daily, at times up to 7/10 radiating down into his arm ending at about his mid forearm level. As mentioned above he is also feeling numbness of his whole right arm with feelings of weakness in his hand. He has been taking Motrin and Tylenol when needed. He underwent a cervical MRI here at [facility] showing a large herniated disc on the right at C5-6 with compression of the spinal cord. He was referred for evaluation. PMH: He is otherwise healthy, history of right ACL repair many years ago. Other than that no issues with his heart, lungs, gastrointestinal, liver, kidneys, bleeding disorders, blood clots cancer etc.. Social hx: Quit smoking 7 years ago, drinks alcohol occasionally, will use a vaping pen with marijuana from time to time. Medications: Just Tylenol Motrin as needed Allergies: None Physical exam: Strength examination reveals some subtle weakness of the finger intrinsics on the right hand, palmar grasp is slightly weaker than the left as well. Right triceps is very subtly weak maybe 4- out of 5. Reflexes demonstrate hyperreflexia on the right side with Aguirre's sign in the right hand and clonus in both ankles. Gait is normal with normal tandem gait testing. Imaging review: Cervical MRI done at [facility] reveals slight reversal of the normal lordotic curvature of the cervical spine with some superimposed degenerative changes, congenitally narrow spinal canal but at C5-6 there is a large right-sided herniated disc causing compression of the spinal cord and severe compression of the right C6 nerve root. There may be some sub tle cord signal change as well. Impression: 33-year-old male presents with acute onset of pain going down his right arm in December of 2023, also associated with hand weakness and whole arm numbness. The pain has receded a little bit, but the weakness and numbness has remained. At times the pain is still as high as a 7/10 requiring anti- inflammatories and Tylenol. He does have weakness of his right arm as outlined above with hyperreflexia, Aguirre's sign and clonus. The MRI shows a severely compressed right C6 nerve with a large fragmented disc herniation as well as spinal cord compression. I am going to speak with Dr. Akhtar, but I believe the patient would be a good candidate for artificial disc replacement given his young age. Once I confirmed with Dr. Akhtar, I will call the patient back and update him with the plan. We did briefly discuss the nature of cervical disc herniations, spinal cord compression and the fact that the ultimate goal of surgery would be to prevent him from getting worse but there would be no guarantee that the strength in the hand and the numbness in the arm would completely go away. Pt was given risk and benefits of surgery including but not limited to infection, hematoma , nerve injury,durotomy, weakness,bowel/bladder injury, persistent pain, vocal hoarseness and dysphagia as well as the option to continue with conservative treatment and patient wishes to proceed with surgery. Pt is aware they should stop their motrin, aspirin 7 days prior to surgery. All questions were answered to the best of our ability. If there is anything about this patients medical history that we have overlooked or concerns you have about us proceeding with surgery we would appreciate any input you can offer. Thank you for allowing us to care for your patient. The total time spent with this visit with this patient was 45 minutes reviewing history, physical exam, cervical imaging review, and implementation of treatment plan or further diagnostic testing José Miguel Akhtar MD,PhD [facility] Coding Level of Care Code New Pt Level 4 (36889) Diagnoses Cervical myelopathy G95.9
[2024-03-26 13:23] VITALS: BMI 28.3
== END 2024-03-26 14:03 | disposition home or self-care (01) ==
PROVIDERS: PCP Internal Medicine; Referring Provider Orthopaedic Surgery; Visit Provider Physician Assistant
DX: G95.9 Disease of spinal cord, unspecified (principal)
CPT/HCPCS: 99204

== ENCOUNTER → 2024-03-26 13:14 | Outpatient (BNVA) | payer OTHER, SELFPAY | PROVIDERS: PCP Internal Medicine; Referring Provider Orthopaedic Surgery; Visit Provider Physician Assistant ==

== ENCOUNTER 2024-05-14 09:59 | Day surgery (SDC) | payer OTHER, SELFPAY ==
[2024-05-04 10:33] VITALS: BMI 28.0
[2024-05-14] VITALS (14 sets, daily range): BP systolic 119–160; BP diastolic 77–106; PULSE 69–109; RESP 12–20; TEMP 36.2–36.6; O2SAT 89–98; BMI 27.5
--- NOTE | ~2024-05-14 | FL_ITS ---
EXAMINATION: FL GUIDANCE ONLY HISTORY: c5-6 disc arthroplasty COMPARISON: None available. TECHNIQUE: Fluoroscopy time: 9.6 seconds. Cumulative Dose: 2.3508 mGy. DAP: 0.7789 mGym2 Images: 2. FINDINGS: Images demonstrate a cervical disc prosthesis at the C5-6 level. FL/FL guidance in OR IMPRESSION: Fluoroscopy during procedure. Please see procedure report for additional information. Electronically signed by: Deng Early MD 05/18/2024 10:06 AM EDT
[2024-05-14] MEDS: methocarbamoL 750 MG TABLET PO (10:41)
[2024-05-14] MEDS: Gabapentin 300 MG CAPSULE PO (10:41)
--- NOTE | 2024-05-14 10:45 | P.HPSUR_ITS ---
Pre-Procedural Eval Section A - 24 Hr Update-Section A only Date of Service: 05/14/24 The patient is an INPATIENT: No Section B - Complete if H&P > 30 days Chief Complaint: Disease of spinal cord, unspecified Details of Present Illness: Right arm pain Allergies: Allergies Allergy/AdvReac Type Severity Reaction Status Date / Time No Known Drug Allergies Allergy Unknown none Verified 05/14/24 10:30 ENVIRONMENTAL Allergy Unknown RUNNY Uncoded 02/13/24 13:26 NOSE, WATERY EYES Review of Systems Sugical H&P ROS: Negative: Constitution, Cardiovascular, Respiratory, Neurological, Psychiatric, Hem-Onc, Allergic/Immunologic, Gastrointestinal, Genitourinary, Musculoskeletal, Integumentary, Endocrine and Eyes/Ears/Nose/Th roat Exam Surgical H&P Exam: Normal: HEENT, Normal: Heart, Normal: Lungs, Normal: Extremities, Normal: Abdomen, Normal: Skin and Normal: Neurological (Awake, alert) Plan I have reviewed the history and physical and performed a pertinent physical examination on my patient. No changes have occurred unless specified. C5-6 artificial disc Time Spent With Patient Time: Total time managing care of this patient today __5__ minutes.
[2024-05-14] MEDS: Lactated Ringers 1,000 ML 100 ML IVCONT (10:59)
--- NOTE | 2024-05-14 11:04 | HO.ANESPROP2 ---
Documented by User: Vanessa Lieberman NP 05/13/24 12:31 HPI - Anesthesia Eval Consult details Narrative: 33yo M for C5 - 6 Total Disc Arthroplasty, 05/14/24 [facility] [place] [place] 10/2023 for parasternal chest pain with nml EKG, stress, and echo [facility] Active Problems Active Problems: All Active Problems Cervical myelopathy (Acute) Neck pain on right side (Acute) Right shoulder pain (Acute) History of trauma of chest (Acute) Cough (Acute) Intermittent chest pain (Acute) HTN (hypertension) (Acute) Acid reflux (Acute) Past Medical History Medical History Back pain Arthritis Asthma Acid reflux Palpitation HTN (hypertension) Intermittent chest pain Family History Family History Father HTN (hypertension) Hypercholesteremia Maternal Grandmother HTN (hypertension) Hypercholesteremia Mother Diabetes Surgical History Surgical History (Updated 05/04/24 @ 10:07 by Patricia Montez RN) S/P ACL repair Social History Social History Housing: Other (duplex) Are you a primary prompt care rn to a significant other at home: No Do you presently have visiting nurse or other home services: No Alcohol intake: current Alcohol intake frequency: a few times a week Patient Tobacco Use Status: Former Tobacco user Cigarette Packs Per Day: 1 Years Smoked: 10 e-Cigarette/Vaping Use: Never Used Second Hand Smoke Exposure: Yes (past) Use of substances other than those prescribed or required for medical reasons: Yes Substance Use Type: Marijuana Substance Use Type Other:: vape Substance Use Frequency: Occasionally Have you been hit, kicked, punched, or otherwise hurt by someone within the past year? If so, by whom?: No Are you DNR?: No Advance Directives: No Advance Directives Information Provided: Yes Advance Directives on File: No Recently lost weight without trying: No Nutrition Risks: No Nutritional Risk Poor oral hygiene: No service: No Current occupational status: employed Current occupation: [employer] Current occupational exposures/hazards: No Cognitive needs: No Hearing needs: No Vision needs: No Meds Allergies Allergy/AdvReac Type Severity Reaction Status Date / Time No Known Drug Allergies Allergy Unknown none Verified 05/14/24 10:30 ENVIRONMENTAL Allergy Unknown RUNNY Uncoded 02/13/24 13:26 NOSE, WATERY EYES Home Medications ?Medication ?Instructions ?Recorded ?Confirmed ?Last Taken ?Type acetaminophen 500 mg tablet 1,000 mg PO Q6H PRN Pain 05/04/24 05/04/24 Unknown History Exam Height,Weight and Vital Signs: Height 5 ft 11 in Weight 91.172 kg Pertinent Lab Results Pertinent Lab Results: Laboratory Tests 07/31/23 14:45 WBC 6.8 Hgb 16.0 Hct 44.8 Plt Count 254 Sodium 139 Potassium 3.9 Chloride 107 Carbon Dioxide 23 BUN 7 L Creatinine 0.92 Narrative Narrative: Exercise Stress 2023 Protocol: VIVEK Max HR: 166 BPM 89% of Pred: 185 BPM Max BP: 168/090 mmHG Max Work Load: 11.7 METS Exercise stress test exercise 10 min of Vivek protocol achieving 89% MPHR, without anginal symptoms, without arrhythmias, with normotensive response to exercise, without EKG changes. Test reviewed with Dr. Romero. ECHO 2023 Conclusions: - The left ventricular systolic function is normal. The calculated ejection fraction is 61% by biplane method. - LV peak GLS -14.8%. - No obvious valvular pathology seen on this study. EKG 2023 EKG Details: EKG shows normal sinus rhythm with sinus arrhythmia with rightward axis. Assessment and Plan Assessment Anesthesia Assessment: Chart Reviewed Documented by User: Franchesca Toledo DO 05/14/24 11:05 [facility] Past Medical History Medical History Back pain Arthritis Asthma Acid reflux Palpitation HTN (hypertension) Intermittent chest pain Family History Family History Father HTN (hypertension) Hypercholesteremia Maternal Grandmother HTN (hypertension) Hypercholesteremia Mother Diabetes Family history of problems with anesthesia: No Surgical History Surgical History (Updated 05/04/24 @ 10:07 by Patricia Montez RN) S/P ACL repair History of Problems with Anesthesia: No Social History Social History Housing: Other (duplex) Are you a primary prompt care rn to a significant other at home: No Do you presently have visiting nurse or other home services: No Alcohol intake: current Alcohol intake frequency: a few times a week Patient Tobacco Use Status: Former Tobacco user Cigarette Packs Per Day: 1 Years Smoked: 10 e-Cigarette/Vaping Use: Never Used Second Hand Smoke Exposure: Yes (past) Use of substances other than those prescribed or required for medical reasons: Yes Substance Use Type: Marijuana Substance Use Type Other:: vape Substance Use Frequency: Occasionally Have you been hit, kicked, punched, or otherwise hurt by someone within the past year? If so, by whom?: No Are you DNR?: No Advance Directives: No Advance Directives Information Provided: Yes Advance Directives on File: No Recently lost weight without trying: No Nutrition Risks: No Nutritional Risk Poor oral hygiene: No service: No Current occupational status: employed Current occupation: [employer] Current occupational exposures/hazards: No Cognitive needs: No Hearing needs: No Vision needs: No Meds Allergies Allergy/AdvReac Type Severity Reaction Status Date / Time No Known Drug Allergies Allergy Unknown none Verified 05/14/24 10:30 ENVIRONMENTAL Allergy Unknown RUNNY Uncoded 02/13/24 13:26 NOSE, WATERY EYES Home Medications ?Medication ?Instructions ?Recorded ?Confirmed ?Last Taken ?Type acetaminophen 500 mg tablet 1,000 mg PO Q6H PRN Pain 05/04/24 05/04/24 Unknown History Exam Exam Date and Time: 05/14/24 [address] Air[address] Mallampati Class: II TM Dist: <=3cm Neck ROM: Full Loose/Missing/Broken Teeth: No (patient denies any loose or broken teeth) Heart: S1S2 Lungs: CTAB Assessment and Plan Assessment Anesthesia Assessment: Anesthesia Plan Discussed and Chart Reviewed Final Anesthetic Review Family History of Problems with Anesthesia: No History of Problems with Anesthesia: No NPO: Yes ASA Class: II Final Preanesthetic Review: No Changes in Pt Med Stat, Meds/Allgs Chart Reviewed, Consent Obtained/Reviewed and Anes Risks/Benef Reviewed Patient Risk: Low Procedure Risk: Intermediate Anesthetic Plan Anesthetic Plan: GA and Agree w/ Assess. and Plan Disposition: Standard PACU
[2024-05-14] MEDS: ceFAZolin Sodium/Dextrose,Iso 2 GM/50 ML PIGGYBACK IV (12:20)
[2024-05-14] MEDS: Acetaminophen 1,000 MG/100 ML PIGGYBACK 400 MG IV (12:20)
--- NOTE | 2024-05-14 13:47 | W.PM.OPN ---
Operative Note Operative Note Date of Service: 05/14/24 Narrative: Preoperative Diagnosis: Cervical radiculopathy Procedure : C5-6 total disc arthropathy Informed Consent was obtained for this operation. I have explained the nature, purpose and benefits of the operation. I have discussed the risks and benefit of the operation including possible complications or adverse events with patient/family. Alternative(s) were discussed with the patient with their relative benefits and risks as well as the consequences of not accepting the operation were included in obtaining consent. Surgeon: KATHY ALEMAN MD, PHD Procedure Assisted By: Alessandro Painter PA-C Description of Procedure: This patient is suffering from right cervical radiculopathy due to large disc herniation C5-C6. The patient was offered a total disc arthropathy The procedure complications were explained. The patient was consented. The patient was brought to the operating room and endotracheally intubated. The patient was put in supine position with slight extension of the neck. Prep and drape was done followed by timeout. A mid cervical incision was made followed by opening of the platysma. The prevertebral fascia was reached following the natural planes while the physician veterinary assistant technician provided manual retraction. The prevertebral fascia was opened to expose the disc space. A spinal needle was placed in the disk space to confirm the correct level with xray. The longus colli muscles were released bilaterally and a self retaining retractor was inserted. Two Greenwich pins were placed in the C5-6 vertebral bodies parallel to the endplates and distraction was give over the interspace. The discectomy was completed toward the posterior annulus of the disc. The microscope was brought in. The remainder of the discectomy was completed. The posterior ligament was opened and resected to expose the underlying dura. Fragments of disc herniation were removed eccentric from the right side that led to a good decompression of the dura and exiting nerve root. A trial implant was inserted to determine the correct implant size is. Then an artificial disc of sentinel spine of the 17 x 16 and 5 mm height was inserted under fluoroscopic guidance. Final x-rays in AP and lateral projection showed a satisfactory position of the implant. The physician veterinary assistant technician took over. The Greenwich pin was removed. Hemostasis was done. He closed the incision in 2 layers with a 3-0 Vicryl. Steri-Strips used to approximate incision. An OpSite with Tegaderm was used to cover the incision. All sponge and needle counts were correct. Patient was extubated and transported in stable is to recovery room. Anesthesia: General Estimated Blood Loss (ml): 20 mL Duration of Surgery: 45 minutes Postoperative Plan: Discharge home Complications: None
--- NOTE | 2024-05-14 13:54 | P.DS_ITS ---
DS: Providers Provider Date of Service: 05/14/24 Date of discharge: 05/14/24 Primary care physician: Unknown Physician DS: Summary Time Attestation Discharge Coordination Time (in mins): 14 Quality: Safe Use of Opioids Does Pt have an Active Cancer Diagnosis on the Problem List?: No Quality: Stroke Does the patient have a stroke diagnosis?: No Physical Exam Vital Signs: Vital Signs: Last Vital Signs Temp 97.2 F 05/14/24 10:59 Pulse 81 05/14/24 10:59 Resp 15 05/14/24 10:59 BP 144/100 H 05/14/24 10:59 Pulse Ox 95 05/14/24 10:59 O2 Del Method Room Air 05/14/24 10:59 BMI result Body Mass Index 27.5 Discharge Plan Discharge Patient Disposition: Home, Self-Care Referrals: Physician,Unknown J [Primary Care Provider] - 1 Week Discharge Medications: New oxycodone 5 mg tablet 5 mg PO Q6H PRN (Reason: pain (scale score 7-10)) Qty: 30 0RF Rx Instructions: Partial Fill upon patient request. Continued omeprazole 20 mg capsule,delayed release(DR/EC) 20 mg PO DAILY 90 Days Qty: 90 2RF acetaminophen 500 mg Tablet 1,000 mg PO Q6H PRN (Reason: Pain) Discharge Orders: Discharge Order (Routine); Ordered 05/14/24 Ordered By: Alessandro Painter Diet: Advance to usual diet Activity on Discharge: As tolerated Activity Restrictions/Additional Instructions: After your spinal surgery we ask you to observe the following restrictions/guidelines: Activity: It is normal to feel some discomfort as you increase your activity, but that will improve with time. We ask you avoid heavy lifting or acitivities that cause pain. As a general rule, 8lbs is a safe limit for lifting right after surgery. Walk as much as you feel comfortable but not to exhaustion. You will feel extra tired the first few days after surgery. Stay well hydrated. It is OK to walk up and down stairs You may return to driving when you are off narcotics (such as vicodin, oxycodone, dilaudid, etc), and you are back to normal functional capacity. If you have any concerns please check with office before driving. Return to work is specific to each patient and each surgery, so please speak with your doctor/PA at first follow up. Please bring paperwork such as FMLA at that time if you need it filled out. Medications: We recommend you take 1,000mg Tylenol every 8 hours for the first few weeks after surgery, if you do not have any liver issues and can tolerate this medication. Do not exceed 4,000mg daily. We will give you a short supply of narcotics after surgery (usually one weeks worth). If you need more please call the office but do not use more than prescribed. You will need to give our office 48 hours notice if you need narcotics refilled and we do not fill narcotics on weekends or evenings. If you are on a narcotic, it is a good idea to take a stool softener such as colace or senna to avoid constipation If you take blood thinner such as aspirin, Plavix, Coumadin, Effient, Eliquis etc for conditions such as Afib, DVT, Pulmonary embolus, coronary disease, stent s etc please speak with your surgeon about specific details as to when you can resume these medications. You can resume NSAIDs on post op day 1 (eg: Motrin, Naproxen, etc). Follow up: Please call the office, , after surgery to arrange a 3 week follow up for wound check. Wound Care: You may remove your dressing on the first day after surgery. ?You may ?leave open to air. Please do not remove the steri strips underneath. they will fall off on their own in one week. IT IS NORMAL FOR THE WOUND TO OOZE OR BE BLOODY FOR A FEW DAYS AFTER SURGERY. ?IF THIS HAPPENS JUST PLACE NEW DRESSING OVER IT TO AVOID STAINING CLOTHES. You may shower on post op day # 1 We ask that you do not let the water soak the wound. If it does get wet, just towel dry lightly. Please do not scrub your incision or place any type of chemical/ointment on the wound. No tub baths, pools or jacuzzis for one month. If you have any leaking or redness from your wound, or fevers, please call the office. Print Language: Icelandic
[2024-05-14] MEDS: fentaNYL citrate/PF 100 MCG/2 ML VIAL 50 MCG IVPUSH ×2 (14:25→14:35)
== END 2024-05-14 15:49 | disposition home or self-care (01) ==
PROVIDERS: Visit Provider Neurological Surgery
PROC: (CPT 22856; principal; 2024-05-14 12:30)
DX: M48.02 Spinal stenosis, cervical region (principal); M50.022 Cervical disc disorder at C5-C6 level with myelopathy; M54.12 Radiculopathy, cervical region; M25.511 Pain in right shoulder; R20.0 Anesthesia of skin; R20.2 Paresthesia of skin; Z98.890 Other specified postprocedural states; Z87.891 Personal history of nicotine dependence
CPT/HCPCS: 22856; C1713; J0131; J0690; J1100; J1885; J2003; J2250; J2405; J2704; J3010

== ENCOUNTER → 2024-05-14 09:59 | Outpatient (BNV) | payer OTHER, SELFPAY | PROVIDERS: Visit Provider Neurological Surgery | DX: G95.9 Disease of spinal cord, unspecified (principal) | CPT/HCPCS: 22856; 99499 ==

== ENCOUNTER 2024-06-04 10:50 | Outpatient (AMB) | payer OTHER, SELFPAY ==
--- NOTE | 2024-06-04 10:57 | A.SPINEOV_ITS ---
Intake Visit Reasons: 1st post op Intake Note: Mr. Encinas is here today for his 1st post op. Teaching Assistant Required: No Allergies No Known Drug Allergies Allergy (Unknown, Verified 07/17/24 13:37) none ENVIRONMENTAL Allergy (Unknown, Uncoded 02/13/24 13:26) RUNNY NOSE, WATERY EYES Assessment & Plan Assessment & Plan (1) S/P cervical disc replacement: Code(s): Z98.890 - Other specified postprocedural states Category: Surgical Plan Procedure: C5-6 Total disc arthroplasty 05/14/24. Karan is a pleasant 33-year-old male who comes in today for his 1st postoperative visit after having a C5-6 total disc arthroplasty completed on 05/14/2024. To recap he previously reported pain going down his right arm with feelings of weakness of his hand and numbness of his whole arm when evaluated in clinic pre-operatively. He reports that he has been doing very well since his surgery. He is able to engage full strength in his right upper extremity without any issues. He no longer has pain in his right upper extremity. He asked several questions regarding the postoperative healing course, all of which I answered to the best of my ability. No new neurological deficits. The patient ambulates well and rises from a seated position without difficulty. His anterior incision site is closed and well healing. I would like to follow up with José Miguel again in 6 weeks and obtain a set of x- rays to evaluate for good placement of the artificial disc. Alessandro Akhtar MD,PhD [facility] Orders: Orders XR cervical spine 4V 06/04/24 Z98.890 - Other specified postprocedural states Coding Level of Care Code Global (06914) Diagnoses S/P cervical disc replacement Z98.890
== END 2024-06-04 11:08 | disposition home or self-care (01) ==
LOC: HO.HNS 10:51
PROVIDERS: Visit Provider Physician Assistant
DX: Z98.890 Other specified postprocedural states (principal)
CPT/HCPCS: 99024

== ENCOUNTER 2024-06-04 10:50 | Outpatient (REF) | payer OTHER, SELFPAY | END 2024-06-04 10:51 | disposition home or self-care (01) | LOC: HO.HOSX 10:50 | PROVIDERS: Visit Provider Physician Assistant | DX: Z13.89 Encounter for screening for other disorder (principal) ==

== ENCOUNTER 2024-07-17 13:22 | Outpatient (AMB) | payer OTHER, SELFPAY ==
--- NOTE | 2024-07-17 13:25 | HO.SPINEOV ---
Intake Visit Reasons: 2nd post op with xrays Intake Note: Mr. Encinas is here today for his 2nd post op with x-rays. Backend Tester Required: No Allergies No Known Drug Allergies Allergy (Unknown, Verified 07/17/24 13:37) none ENVIRONMENTAL Allergy (Unknown, Uncoded 02/13/24 13:26) RUNNY NOSE, WATERY EYES Assessment & Plan Assessment & Plan (1) S/P cervical disc replacement: Code(s): Z98.890 - Other specified postprocedural states Category: Surgical Plan Mr Encinas is 2 months out from his total disc arthroplasty C5-6. He is doing great. He has complete resolution of his arm pain and his neck pain. Is wound is healed up nicely. His x-rays look excellent. There is full range of motion in the artificial disc. He has no restrictions at this point and can follow up on an as-needed basis. José Miguel Akhtar MD, PhD [facility] Orders: Orders XR cervical spine 4V Today Z98.890 - Other specified postprocedural states Coding Level of Care Code Global (43272) Diagnoses S/P cervical disc replacement Z98.890
== END 2024-07-17 13:46 | disposition home or self-care (01) ==
LOC: HO.HNS 13:23
PROVIDERS: Visit Provider Physician Assistant
DX: Z98.890 Other specified postprocedural states (principal)
CPT/HCPCS: 99024

== ENCOUNTER 2024-07-17 13:22 | Outpatient (REF) | payer OTHER, SELFPAY ==
--- NOTE | ~2024-07-17 | XR_ITS ---
EXAMINATION: XR CERVICAL SPINE CLINICAL INFORMATION: Z98.890 - Other specified postprocedural states COMPARISON: February 13, 2024. TECHNIQUE: 6 views of the cervical spine, inclusive of flexion and extension views, were obtained. FINDINGS: Intervertebral disc spacer placement at C5-C6. No acute cortical disruption or gross malalignment in neutral nor flexion or extension position. Craniocervical junction is intact. No lytic or blastic lesions. XR/XR cervical spine 4V IMPRESSION: Status post intervertebral disc spacer placement C5-6 without gross instability. Electronically signed by: Stephen Reed MD 07/17/2024 01:55 PM EDT
== END 2024-07-17 13:23 | disposition home or self-care (01) ==
LOC: HO.HOSX 13:22
PROVIDERS: Visit Provider Physician Assistant
DX: Z98.890 Other specified postprocedural states (principal)
CPT/HCPCS: 72050

== ENCOUNTER → 2024-07-17 13:29 | Outpatient (BNV) | payer OTHER, SELFPAY | PROVIDERS: Visit Provider Radiology Diagnostic Radiology | DX: Z98.890 Other specified postprocedural states (principal) | CPT/HCPCS: 72050 ==